=== PATIENT | male | born 2000 | race American Indian/Alaskan Native ===

== ENCOUNTER 2021-08-30 11:14 | Emergency (ER) | payer OTHER ==
[2021-08-30 11:34] VITALS: BP 142/89; PULSE 112
[2021-08-30] MEDS ORDERED: cefTRIAXone 500 MG, Lidocaine 1% 1 ML IM ONE ×2 (11:53)
--- NOTE | 2021-08-30 12:03 | EDM.PDOC ---
ED HPI GENERAL MEDICAL PROBLEM - General Chief Complaint: Genitourinary Problem Stated Complaint: STD Time Seen by Provider: 08/30/21 11:45 Source of Information: Reports: Patient History Limitations: Reports: No Limitations - History of Present Illness INITIAL COMMENTS - FREE TEXT/NARRATIVE: 21 y/o M c/o white and green urinary discharge as well as painful urination for 5 days. No hx of std infections. Has been with a new partner for two weeks and has been having unprotected sex. He denies fever, cough, chills, bdy aches, joint ain, ext pain, c, db, abd pn, testicular pain. - Related Data Allergies Allergy/AdvReac Type Severity Reaction Status Date / Time No Known Allergies Allergy Verified 08/30/21 11:36 Home Meds: Home Meds . [No Known Home Meds] 05/27/15 [History] Past Medical History - Past Health History Medical/Surgical History: Denies Medical/Surgical History HEENT History: Reports: None Cardiovascular History: Reports: None Gastrointestinal History: Reports: None Genitourinary History: Reports: None Musculoskeletal History: Reports: None Neurological History: Reports: None Psychiatric History: Reports: None Endocrine/Metabolic History: Reports: None Hematologic History: Reports: None Immunologic History: Reports: None Oncologic (Cancer) History: Reports: None Dermatologic History: Reports: None - Infectious Disease History Infectious Disease History: Reports: None - Past Surgical History Head Surgeries/Procedures: Reports: None Social & Family History - Family History Family Medical History: No Pertinent Family History - Tobacco Use Tobacco Use Status *Q: Current Every Day Tobacco User Years of Tobacco use: 3 Packs/Tins Daily: 1 - Caffeine Use Caffeine Use: Reports: Coffee - Recreational Drug Use Recreational Drug Use: Yes Recreational Drug Type: Reports: Marijuana/Hashish Recreational Drug Use Frequency: Weekly ED ROS GENERAL - Review of Systems Review Of Systems: Comprehensive ROS is negative, except as noted in HPI. ED EXAM, RENAL/ - Physical Exam Exam: See Below General Appearance: Alert, No Apparent Distress Ears: Normal External Exam Nose: Normal Inspection, Normal Mucosa, No Blood Throat/Mouth: Normal Inspection, Normal Lips, Normal Teeth, Normal Gums, Normal Oropharynx, Normal Voice, No Airway Compromise Head: Atraumatic, Normocephalic Neck: Normal Inspection, Supple, Non-Tender, Full Range of Motion Respiratory/Chest: No Respiratory Distress, Lungs Clear, Normal Breath Sounds, No Accessory Muscle Use, Chest Non-Tender Cardiovascular: Normal Peripheral Pulses, Regular Rate, Rhythm, No Edema, No Gallop, No JVD, No Murmur, No Rub GI/Abdominal: Soft, Non-Tender (Male) Exam: No Hernia, Other (white green discharge from penis, no visible ulcerations or inflammation) Rectal (Males) Exam: Deferred Back Exam: Normal Inspection, Full Range of Motion Extremities: Normal Inspection, Normal Range of Motion, Non-Tender, Normal Capillary Refill, No Pedal Edema Neurological: Alert, Oriented, CN II-XII Intact, Normal Cognition, Normal Gait, Normal Reflexes, No Motor/Sensory Deficits Course - Vital Signs Last Recorded V/S: Last Vital Signs Temp 98.9 F 08/30/21 11:31 Pulse 112 H 08/30/21 11:31 Resp 20 08/30/21 11:31 BP 142/89 H 08/30/21 11:31 Pulse Ox 96 08/30/21 11:31 - Orders/Labs/Meds Orders: Active Orders 24 hr Category Date Time Status CULTURE URINE [RM] Stat Lab 08/30/21 11:25 Received STD PANEL 3 [REF] Stat Lab 08/30/21 11:47 Ordered UA W/MICROSCOPIC [URIN] Stat Lab 08/30/21 11:25 Results Labs: Laboratory Tests 08/30/21 Range/Units 11:25 Urine Color Dark yellow (YELLOW) Urine Appearance Cloudy (CLEAR) Urine pH 6.0 (5.0-9.0) Ur Specific [place] >= 1.030 (1.005-1.030) Urine Protein 100 H (NEGATIVE) Urine Glucose (UA) Negative (NEGATIVE) Urine Ketones 15 H (NEGATIVE) Urine Occult Blood Moderate H (NEGATIVE) Urine Nitrite Negative (NEGATIVE) Urine Bilirubin Moderate H (NEGATIVE) Urine Urobilinogen 4.0 H (0.2-1.0) mg/dL Ur Leukocyte Esterase Moderate H (NEGATIVE) Meds: Medications Discontinued Medications Generic Name Dose Route Start Last Admin Trade Name Freq PRN Reason Stop Dose Admin Ceftriaxone Sodium 500 mg/ 0 mg 08/30/21 11:53 08/30/21 12:08 Lidocaine HCl 1 ml IM 08/30/21 11:54 1 inj ONETIME ONE Administration Departure - Departure Time of Disposition: 12:09 Disposition: Home, Self-Care 01 Condition: Good Clinical Impression: STD (male) - Discharge Information *PRESCRIPTION DRUG MONITORING PROGRAM REVIEWED*: Not Applicable *COPY OF PRESCRIPTION DRUG MONITORING REPORT IN PATIENT HAIR: Not Applicable Instructions: Sexually Transmitted Disease, [id number] Forms: ED Department Discharge Additional Instructions: RX: Doxycycline Use tylenol and ibuprofen for pain as needed. Drink plenty of fluids to maintain hydration. Avoid sexual activity until your antibiotics are finished. Take all of your antibiotics until they are gone even if your symptoms improve. Follow up in clinic in a week if your symptoms do not improve. If any new symptoms or concerns develop contact your primary care facility or return to the ER. Sepsis Event Note (ED) - Evaluation Sepsis Screening Result: No Definite Risk - Focused Exam Vital Signs: Vital Signs Temp Pulse Resp BP Pulse Ox 08/30/21 11:31 98.9 F 112 H 20 142/89 H 96 - My Orders Last 24 Hours: My Active Orders 08/30/21 11:25 CULTURE URINE [RM] Stat UA W/MICROSCOPIC [URIN] Stat 08/30/21 11:47 STD PANEL 3 [REF] Stat - Assessment/Plan Last 24 Hours: My Active Orders 08/30/21 11:25 CULTURE URINE [RM] Stat UA W/MICROSCOPIC [URIN] Stat 08/30/21 11:47 STD PANEL 3 [REF] Stat
[2021-09-03 13:48] LABS: C.TRACHOMATIS BY TMA Negative (Negative); N.GONORRHOEAE BY TMA Positive (Negative)
== END 2021-08-30 12:19 | disposition home or self-care (01) ==
LOC: DL.ED 11:14
DX: A64 Unspecified sexually transmitted disease (principal); Z72.0 Tobacco use
CPT/HCPCS: 36415; 81001; 87086; 87491; 87563; 87591; 96372; 99283; J0696